=== PATIENT | female | born 2000 | race Caucasian/White ===

== ENCOUNTER 2019-05-18 12:02 | Emergency (ER) | payer OTHER ==
--- NOTE | 2019-05-18 12:36 | RAD ---
EXAM: 3 views of the right ankle HISTORY: Ankle pain COMPARISON: None FINDINGS: 3 views of the right ankle shows no evidence of acute fracture or dislocation. Mild lateral soft tissue swelling is seen. No degenerative changes are present. IMPRESSION: No evidence of acute osseous abnormality.
[2019-05-18] MEDS ORDERED: Ketorolac Tromethamine 30 MG/ML VIAL ONE (13:07)
== END 2019-05-18 13:30 | disposition home or self-care (01) ==
LOC: ERS 12:02
DX: S93.401A Sprain of unspecified ligament of right ankle, initial encounter (principal); V00.148A Other scooter (nonmotorized) accident, initial encounter
CPT/HCPCS: 96372; J1885